=== PATIENT | female | born 1970 | race African-American/Black ===

== ENCOUNTER 2019-07-26 06:19 | Emergency (ER) | payer OTHER ==
[~2019-07-26] VITALS: Ht 162.6 cm; Wt 108.9 kg
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
[2019-07-26] MEDS ORDERED: Morphine Sulfate 4mg/ml Inj (IV USE ONLY) IVP ONE ×2 (06:45→08:45)
[2019-07-26] MEDS ORDERED: LORazepam Inj 2mg/ml 1ml IV ONE ×2 (07:00→07:30)
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
--- NOTE | 2019-07-26 07:14 | NUR ---
ED Nurse Note: Pt returned from imaging, remains slightly non-cooperative and refuses to answer most questions, pt placed on cardiac monitoring, shift report given to am nurse to resume care and complete meds and lab specimens to collect, pt is more calm from morphine but continues to thrash.
[2019-07-26] MEDS ORDERED: LORazepam Inj 2mg/ml 1ml ONE (07:27)
--- NOTE | 2019-07-26 07:36 | NUR ---
ED Nurse Note: Pt is cooperative and awake. Pt refuses to tell us information about why she is here.
[2019-07-26 07:39] VITALS: BP 161/142
[2019-07-26 07:46] LABS: BASOPHILS % (AUTO) 1.1 % (0.0-2.0); EOSINOPHILS % (AUTO) 0.5 % (0.0-3.0); HEMATOCRIT 40.2 % (37.0-47.0); HEMOGLOBIN 13.9 G/DL (12.0-16.0); MEAN CORPUSCULAR VOLUME 89 FL (80-99); MONOCYTES % (AUTO) 5.4 % (1.0-10.0); PLATELET COUNT 139 K/UL (150-450); RED BLOOD COUNT 4.52 M/UL (4.20-5.40); RED CELL DISTRIBUTION WIDTH 11.4 % (11.6-14.8); WHITE BLOOD COUNT 5.9 K/UL (4.8-10.8)
[2019-07-26 07:50] LABS: ANION GAP 12 mmol/L (5-15); BLOOD UREA NITROGEN 16 mg/dL (7-18); CALCIUM 8.7 MG/DL (8.5-10.1); CARBON DIOXIDE 22 MMOL/L (21-32); CHLORIDE 108 MMOL/L (98-107); CREATININE 1.3 MG/DL (0.55-1.30); POTASSIUM 3.7 MMOL/L (3.5-5.1); SODIUM 142 MMOL/L (136-145)
--- NOTE | 2019-07-26 07:51 | NUR ---
ED Nurse Note: Pt continues to kick and swing her arms around with moments of clam. Pt is restless and can not sit still most of the time. Pt cooperative.
[2019-07-26 07:55] LABS: ALANINE AMINOTRANSFERASE 34 U/L (12-78); ALBUMIN 3.7 G/DL (3.4-5.0); ALBUMIN/GLOBULIN RATIO 0.9 (1.0-2.7); ALKALINE PHOSPHATASE 94 U/L (46-116); ASPARTATE AMINO TRANSFERASE 36 U/L (15-37); BILIRUBIN,TOTAL 0.4 MG/DL (0.2-1.0)
--- NOTE | 2019-07-26 08:02 | NUR ---
Note avinash in EDM - 07/26/19 at 0829 by [email or web address] ED Nurse Note: Elevated BP reported to MD. No action at this time.
[2019-07-26 08:03] VITALS: BP 193/162
--- NOTE | 2019-07-26 08:04 | NUR ---
ED Nurse Note: Elevated BP reported to MD. Pt will not sit still for BP. Pt is restless. Will continue to monitor.
[2019-07-26 08:06] VITALS: BP 133/93
--- NOTE | 2019-07-26 08:19 | Diagnostic Imaging Report ---
Indications: Pain, trauma Technique: Spiral acquisitions obtained through the brain. Angled axial and coronal 5 x 5 mm slices were reconstructed. Total dose length product 1426 mGycm. CTDI vol(s) mGy. Dose reduction achieved using automated exposure control Comparison: None. Findings: There is a sizable occipital scalp hematoma present. Intact calvarium. No acute intracranial hemorrhage or edema, mass effect or midline shift. Normal size ventricles and extra-axial CSF spaces. There is some periventricular deep white matter low-attenuation. Visualized orbits and sinuses are unremarkable Impression: Scalp hematoma Negative for acute intracranial bleed or mass effect Minimal periventricular deep white matter low-attenuation, most likely chronic microvascular ischemic changes. This agrees with the preliminary interpretation provided overnight by [facility] teleradiology service. The CT scanner at [facility] is accredited by the [employer] and the scans are performed using protocols designed to limit radiation exposure to as low as reasonably achievable to attain images of sufficient resolution adequate for diagnostic evaluation.
--- NOTE | 2019-07-26 08:27 | Diagnostic Imaging Report ---
Indications: Facial pain Technique: Spiral images obtained through the facial bones. No IV contrast utilized. Multiplanar reconstructions were generated.Total dose length product 535 mGycm. CTDIvol(s) 24 mGy. Dose reduction achieved using automated exposure control Comparison: none Findings: Exam is slightly limited due to motion artifact. There is a large discrete hematoma in the left inferior malar region, peripheral to the alveolar ridge of the maxilla. This demonstrates some layering of blood products. This measures 3.6 x 3.6 cm. There is evidence of surrounding soft tissue contusion. No evidence of acute fracture. The mandible is intact. The sinuses are clear. Patient is nearly edentulous. The optic globes are intact. The retroseptal orbits are unremarkable. Impression: Evidence of 3.6 x 3.6 cm left malar region hematoma with surrounding contusion. Recommend clinical follow up to resolution to ensure that underlying mass lesion is not present. No acute bony trauma This agrees with the preliminary interpretation provided overnight by [facility]. The CT scanner at [facility] is accredited by the [employer] and the scans are performed using protocols designed to limit radiation exposure to as low as reasonably achievable to attain images of sufficient resolution adequate for diagnostic evaluation.
[2019-07-26] MEDS ORDERED: Ketorolac 30mg Inj IV ONE (08:45)
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
--- NOTE | 2019-07-26 09:14 | NUR ---
Note undone in [facility] - 07/26/19 at 0948 by DAO When pt is more alert and wants to make a statement with [employer] please have pt call Officer Je [phone] Addendum: 07/26/19 at 0947 by DAO Amendment avinash in [facility] - 07/26/19 at 0948 by DAO When pt is more alert and wants to make a statement with [employer] please have nurse call Officer Je [phone] and officer will stop by facility to make statement
[2019-07-26 09:31] VITALS: BP 176/102
[2019-07-26] MEDS ORDERED: IBUPROFEN600 MG ORAL (10:21)
--- NOTE | 2019-07-26 12:34 | NUR ---
ED Nurse Note: Pt sleeping. Family at bedside(Pbo, ).
--- NOTE | 2019-07-26 14:40 | NUR ---
ED Nurse Note: Contacted pt and he stated that he will get her in 5min.
--- NOTE | 2019-07-26 14:52 | NUR ---
ED Nurse Note: Pt family member at bedside.
[2019-07-26 15:27] VITALS: BP 171/97
--- NOTE | 2019-07-26 15:27 | NUR ---
ER DISCHARGE NOTE: Patient is cleared to be discharged per ERMD, pt is aox4, on room air, with stable vital signs. pt was given dc, pt was able to verbalize understanding, pt id band and iv site removed without complications. pt is able to ambulate with steady gait. pt took all belongings. Pt left ED with at her side.
== END 2019-07-26 15:27 | disposition home or self-care (01) ==
LOC: EDBD 06:19 → EMR 06:43
DX: S00.83XA Contusion of other part of head, initial encounter (principal); F19.10 Other psychoactive substance abuse, uncomplicated; Y04.2XXA Assault by strike against or bumped into by another person, initial encounter; Y92.9 Unspecified place or not applicable
CPT/HCPCS: 36415; 70450; 70486; 80053; 80307; 85025; 96361; 96374; 96375; 96376; G0480; J1885; J2270; J2405; Z7502; 99284; J7030